=== PATIENT | female | born 1985 | race Caucasian/White ===

== ENCOUNTER 2016-05-20 08:27 | Emergency (ER) ==
[2016-05-20 08:40] VITALS: BP 143/98
--- NOTE | 2016-05-20 09:09 | PROVIDER DOCUMENTATION ---
[facility] General - General Chief Complaint: Toothache Stated Complaint: TOOTHACHE Time Seen by Provider: 05/20/16 09:02 Source: patient Allergies/Adverse Reactions: Patient Allergies Allergy/AdvReac Type Severity Reaction Status Date / Time metronidazole [From Flagyl] Allergy Mild SWELLING Verified 09/24/12 15:12 Metronidazole HCl * Allergy Mild SWELLING Verified 09/24/12 15:12 [From Flagyl] Home Medications: Home Medication List Medication Instructions Recorded Confirmed Last Taken Type Hydrocodone/Acetaminophen 1 each PO Q4-6H PRN PRN 09/26/12 09/26/12 09/26/12 14: 00 History [Hydrocodon-Acetaminoph 7.5-650] Acetaminophen with Codeine 1 each PO Q6H PRN PRN #20 tablet 05/20/16 Unknown Rx [Tylenol with Codeine #3 Tablet] Penicillin V Potassium 500 mg PO 4XDAY #40 tablet 05/20/16 Unknown Rx - History of Present Illness-EENT General Nature of Presenting Problem: swelling in left lower jaw terrible teeth no uppers hx bechets EENT Location: reports: dental Quality of Pain: reports: throbbing Severity: reports: moderate Onset/Duration: reports: 24 hours ago Timing: reports: still present Prearrival Treatment: Initiated over the counter meds Associated Symptoms: reports: tooth pain Similar Symptoms Previously?: Yes Recently seen or treated by another doctor?: Yes Review of Systems - Adult - REVIEW OF SYSTEMS - ADULT Constitutional: reports: no symptoms reported Eyes: reports: no symptoms reported Ears, Nose, Mouth & Throat: reports: mouth/dental pain, mouth swelling. denies : throat swelling Cardiovascular: reports: no symptoms reported Respiratory: reports: no symptoms reported Gastrointestinal: reports: no symptoms reported Genitourinary: reports: no symptoms reported Musculoskeletal: reports: no symptoms reported Integumentary: reports: no symptoms reported Neurological: reports: no symptoms reported Psychiatric: reports: no symptoms reported Endocrine: reports: no symptoms reported Hematologic/Lymphatic: reports: no symptoms reported Allergic/Immunologic: reports: no symptoms reported Past History - Adult - PAST MEDICAL HISTORY-ADULT Review of Records: reports: Nursing Assessment Review, Medications Reviewed, Social history reviewed & non-contributory. Genitourinary: reports: kidney disease Endocrine/Immune: reports: [facility] Physical Exam- E[facility] - Physical Exam EENT Initial Vital Signs Reviewed: Yes General Appearance: appears well Eye Exam: bilateral eye: normal inspection Nasal Exam: normal inspection Throat Exam: mandibular swelling Neck: supple Respiratory: no respiratory distress Cardiovascular: regular rate, rhythm Abdominal Exam: soft Lymphatic: no adenopathy Back Exam: normal inspection Extremity: normal range of motion Neurologic: grossly normal Departure - Departure Time of Disposition Order: 09:07 DIAGNOSIS: Dental abscess Disposition: HOME 01 Certified Medical Emergency: Emergent Condition: Stable Prescriptions: Acetaminophen with Codeine [Tylenol with Codeine #3 Tablet] 1 each PO Q6H PRN PRN #20 tablet PRN Reason: Pain Penicillin V Potassium 500 mg PO 4XDAY #40 tablet
== END 2016-05-20 09:21 | disposition home or self-care (01) ==
LOC: P.ED 08:27
DX: K04.7 Periapical abscess without sinus (principal); K08.89 Other specified disorders of teeth and supporting structures; R22.0 Localized swelling, mass and lump, head; M35.2 Behcet's disease
CPT/HCPCS: 99282